=== PATIENT | male | born 1955 | race Caucasian/White ===

== ENCOUNTER 2020-03-30 11:03 | Emergency (ER) | payer BC ==
[2020-03-30] MEDS ORDERED: Sodium Chloride 0.9% 10 ML Syringe FLUSH PRN (11:24)
[2020-03-30] MEDS ORDERED: Aspirin 81 MG Tab.Chew PO ONE (12:18)
[2020-03-30] MEDS ORDERED: Heparin Sodium 5,000 Units/ML Vial IVPUSH ONE (12:19)
[2020-03-30] MEDS ORDERED: Heparin Sodium/D5W 25,000 UNITS/500 ML BAG IV SCH (12:20)
--- NOTE | 2020-03-30 12:28 | EDM.PDOC ---
ED HPI GENERAL MEDICAL PROBLEM - General Chief Complaint: Cardiovascular Problem Stated Complaint: COUGH/CHEST PAIN/CLEARED FROM COVID 2WEEKS AGO Time Seen by Provider: 03/30/20 11:45 Source of Information: Reports: Patient, RN Notes Reviewed History Limitations: Reports: No Limitations - History of Present Illness INITIAL COMMENTS - FREE TEXT/NARRATIVE: Patient is a 64 year old male who presents to the ED for the evaluation of his irregular heartbeats this morning. Patient notes that 15 days ago, he was positive for COVID-19. He is off quarantine, he states he is having a fatigue and a mild cough at this time. But he is not had any fevers, chills, any oxygen irregularities. Patient notes that this morning he went to do his chores, feeding horses and pitching hay when he felt his heart beat a little irregular. This concerned him as he has a normal pretty steady heart rate. He is not having any chest pain or shortness of breath at this time, he further denies any body aches or any other [id number] symptoms. He notes that he takes amlodipine and chlorthalidone for medications, his primary care provider is Oliver Curtis. He states he did take some aspirin this morning as well for initial heart health - Related Data Allergies Allergy/AdvReac Type Severity Reaction Status Date / Time No Known Allergies Allergy Verified 03/30/20 11:18 Home Meds: Home Meds Chlorthalidone 25 mg PO DAILY 03/30/20 [History] amLODIPine [Norvasc] 10 mg PO DAILY 03/30/20 [History] Past Medical History Cardiovascular History: Reports: Hypertension - Infectious Disease History Infectious Disease History: Reports: Chicken Pox, Novel Coronavirus - Past Surgical History HEENT Surgical History: Reports: Tonsillectomy GI Surgical History: Reports: Appendectomy Social & Family History - Family History Family Medical History: No Pertinent Family History - Tobacco Use Tobacco Use Status *Q: Current Some Day Tobacco User Years of Tobacco use: 25 Packs/Tins Daily: 0.2 - Caffeine Use Caffeine Use: Reports: Coffee - Recreational Drug Use Recreational Drug Use: No ED ROS GENERAL - Review of Systems Review Of Systems: Comprehensive ROS is negative, except as noted in HPI. ED EXAM, GENERAL - Physical Exam Exam: See Below Exam Limited By: No Limitations General Appearance: Alert, WD/WN, No Apparent Distress Eye Exam: Bilateral Eye: Normal Inspection Respiratory/Chest: No Respiratory Distress, Lungs Clear, Normal Breath Sounds, No Accessory Muscle Use, Chest Non-Tender Cardiovascular: Normal Peripheral Pulses, Regular Rate, Rhythm, No Murmur Peripheral Pulses: 2+: Radial (L), Radial (R) GI/Abdominal: Normal Bowel Sounds, Soft, Non-Tender, No Distention, No Mass Extremities: Normal Inspection, Normal Capillary Refill Neurological: Alert, Oriented, Normal Cognition, No Motor/Sensory Deficits Psychiatric: Normal Affect, Normal Mood Skin Exam: Warm, Dry, Intact, Normal Color, No Rash #1 Interpretation EKG Date: 03/30/20 Time: 11:31 Rhythm: NSR Rate (Beats/Min): 65 [place]: LAD-Left [place] Deviation (-33 ) P-Wave: Present QRS: Normal ST-T: Normal QT: Normal EKG Interpretation Comments: No obvious ischemia or acute ST changes noted, reviewed by myself and Dr. Berg. There is some T wave inversion in V5 and V6, and possible Q waves in leads III and aVF suggestive of an old inferior wall IN. Course - Vital Signs Last Recorded V/S: Last Vital Signs Temp 97.4 F 03/30/20 11:15 Pulse 73 03/30/20 11:15 Resp 19 03/30/20 11:15 BP 156/92 H 03/30/20 11:15 Pulse Ox 98 03/30/20 11:15 - Orders/Labs/Meds Orders: Active Orders 24 hr Category Date Time Status EKG Documentation Completion [RC] STAT Care 03/30/20 11:24 Active Peripheral IV Care [RC] . DIRECTED Care 03/30/20 11:24 Active CORONAVIRUS COVID-19 DANIEL [MOLEC] Stat Lab 03/30/20 12:16 Ordered Heparin Sodium/D5W [Heparin 25,000 Units in D5W 500 ML] Med 03/30/20 12:20 Ordered 25,000 units in 500 ml IV TITRATE Sodium Chloride 0.9% [Saline Flush] Med 03/30/20 11:24 Active 10 ml FLUSH ASDIRECTED PRN Peripheral IV Insertion Adult [OM.PC] Stat Oth 03/30/20 11:24 Ordered Medication Orders Heparin Sodium/Dextrose (Heparin 25,000 Units In D5w 500 Ml) 25,000 units in 500 mls @ 23.95 mls/hr IV TITRATE DEWAYNE; Protocol Last Admin: 03/30/20 12:33 Dose: 12 units/kg/hr, 23.95 mls/hr Documented by: MCKENNA Cosigned by: RADHA Sodium Chloride (Saline Flush) 10 ml FLUSH ASDIRECTED PRN PRN Reason: Keep Vein Open Last Admin: 03/30/20 11:26 Dose: 10 ml Documented by: MCKENNA Labs: Laboratory Tests 03/30/20 03/30/20 03/30/20 Range/Units 11:15 11:15 11:15 WBC 8.92 (4.23-9.07) K/mm3 RBC 5.13 (4.63-6.08) M/mm3 Hgb 16.1 (13.7-17.5) gm/dl Hct 44.6 (40.1-51.0) % MCV 86.9 (79.0-92.2) fl MCH 31.4 (25.7-32.2) pg MCHC 36.1 H (32.2-35.5) g/dl RDW Std Deviation 38.8 (35.1-43.9) fL Plt Count 244 (163-337) K/mm3 MPV 10.2 (9.4-12.3) fl Neut % (Auto) 70.2 H (34.0-67.9) % Lymph % (Auto) 19.5 L (21.8-53.1) % [place] % (Auto) 9.1 (5.3-12.2) % Eos % (Auto) 1.0 (0.8-7.0) Baso % (Auto) 0.2 (0.1-1.2) % Neut # (Auto) 6.26 H (1.78-5.38) K/mm3 Lymph # (Auto) 1.74 (1.32-3.57) K/mm3 [place] # (Auto) 0.81 (0.30-0.82) K/mm3 Eos # (Auto) 0.09 (0.04-0.54) K/mm3 Baso # (Auto) 0.02 (0.01-0.08) K/mm3 PT 10.0 (9.7-12.0) SECONDS INR 0.93 APTT 23.8 (21.7-31.4) SECONDS Sodium 138 (136-145) mEq/L Potassium 3.2 L (3.5-5.1) mEq/L Chloride 100 (98-107) mEq/L Carbon Dioxide 28 (21-32) mEq/L Anion Gap 13.2 (5-15) BUN 24 H (7-18) mg/dL Creatinine 1.2 (0.7-1.3) mg/dL Est Cr Clr Drug Dosing 68.26 mL/min Estimated GFR (MDRD) > 60 (>60) mL/min BUN/Creatinine Ratio 20.0 H (14-18) Glucose 117 H (80-115) mg/dL Calcium 9.7 (8.5-10.1) mg/dL Magnesium 2.0 (1.8-2.4) mg/dl Total Bilirubin 0.7 (0.2-1.0) mg/dL AST 24 (15-37) U/L ALT 41 (16-63) U/L Alkaline Phosphatase 102 (46-116) U/L Troponin I 2.037 H* (0.00-0.056) ng/mL NT-Pro-B Natriuret Pep (0-125) pg/mL Total Protein 8.0 (6.4-8.2) g/dl Albumin 4.3 (3.4-5.0) g/dl Globulin 3.7 gm/dL Albumin/Globulin Ratio 1.2 (1-2) /25/20 Range/Units 11:15 WBC (4.23-9.07) K/mm3 RBC (4.63-6.08) M/mm3 Hgb (13.7-17.5) gm/dl Hct (40.1-51.0) % MCV (79.0-92.2) fl MCH (25.7-32.2) pg MCHC (32.2-35.5) g/dl RDW Std Deviation (35.1-43.9) fL Plt Count (163-337) K/mm3 MPV (9.4-12.3) fl Neut % (Auto) (34.0-67.9) % Lymph % (Auto) (21.8-53.1) % [place] % (Auto) (5.3-12.2) % Eos % (Auto) (0.8-7.0) Baso % (Auto) (0.1-1.2) % Neut # (Auto) (1.78-5.38) K/mm3 Lymph # (Auto) (1.32-3.57) K/mm3 [place] # (Auto) (0.30-0.82) K/mm3 Eos # (Auto) (0.04-0.54) K/mm3 Baso # (Auto) (0.01-0.08) K/mm3 PT (9.7-12.0) SECONDS INR APTT (21.7-31.4) SECONDS Sodium (136-145) mEq/L Potassium (3.5-5.1) mEq/L Chloride (98-107) mEq/L Carbon Dioxide (21-32) mEq/L Anion Gap (5-15) BUN (7-18) mg/dL Creatinine (0.7-1.3) mg/dL Est Cr Clr Drug Dosing mL/min Estimated GFR (MDRD) (>60) mL/min BUN/Creatinine Ratio (14-18) Glucose (80-115) mg/dL Calcium (8.5-10.1) mg/dL Magnesium (1.8-2.4) mg/dl Total Bilirubin (0.2-1.0) mg/dL AST (15-37) U/L ALT (16-63) U/L Alkaline Phosphatase (46-116) U/L Troponin I (0.00-0.056) ng/mL NT-Pro-B Natriuret Pep 1759 H (0-125) pg/mL Total Protein (6.4-8.2) g/dl Albumin (3.4-5.0) g/dl Globulin gm/dL Albumin/Globulin Ratio (1-2) Meds: Medications Generic Name Dose Route Start Last Admin Trade Name Freq PRN Reason Stop Dose Admin Heparin Sodium/Dextrose 25,000 units in 500 mls @ 23.95 mls/hr 03/30/20 12:20 03/30/20 12:33 Heparin 25,000 Units In D5w 500 Ml IV 12 units/kg/hr TITRATE DEWAYNE 23.95 mls/hr Administration Protocol 12 UNITS/KG/HR Sodium Chloride 10 ml 03/30/20 11:24 03/30/20 11:26 Saline Flush FLUSH 10 ml ASDIRECTED PRN Administration Keep Vein Open Discontinued Medications Generic Name Dose Route Start Last Admin Trade Name Justin PRN Reason Stop Dose Admin Aspirin 324 mg 03/30/20 12:18 03/30/20 12:40 Aspirin PO 03/30/20 12:19 Not Given ONETIME ONE Heparin Sodium (Porcine) 4,000 units 03/30/20 12:19 03/30/20 12:33 Heparin Sodium IVPUSH 03/30/20 12:20 4,000 units .BOLUS ONE Administration - Re-Assessments/Exams Free Text/Narrative Re-Assessment/Exam: 03/30/20 12:39 Patient presents to the ED for evaluation of his irregular heartbeat. He is status post Covid, he did get a cardiac work-up for labs, EKG demonstrated no obvious ST ischemia or abnormalities. This was reviewed by myself and Dr. Berg. His troponin I was markedly elevated at 2.037. At this time we did start heparin drip and bolus. I have been in contact with cardiology at [facility] in [place], and Dr. Daniel does tentatively accept for admission, he states he would need echo and repeat troponins. I also talked with Dr. Montano, and he graciously accepts the patient for transfer for N-STEMI at this time. We will get the patient transferred via ambulance for further evaluation management. Departure - Departure Time of Disposition: 12:46 Disposition: DC/Tfer to Acute Hospital 02 Reason for Transfer *Q: Other (N-stemi) Condition: Fair Clinical Impression: Non-STEMI (non-ST elevated myocardial infarction) Referrals: PCP,None [Primary Care Provider] - Forms: ED Department Discharge Sepsis Event Note (ED) - Evaluation Sepsis Screening Result: No Definite Risk - Focused Exam Vital Signs: Vital Signs Temp Pulse Resp BP Pulse Ox 03/30/20 11:15 97.4 F 73 19 156/92 H 98 - My Orders Last 24 Hours: My Active Orders 03/30/20 11:24 EKG Documentation Completion [RC] STAT Peripheral IV Care [RC] . DIRECTED Sodium Chloride 0.9% [Saline Flush] 10 ml FLUSH ASDIRECTED PRN Peripheral IV Insertion Adult [OM.PC] Stat 03/30/20 12:16 CORONAVIRUS COVID-19 DANIEL [MOLEC] Stat 03/30/20 12:20 Heparin Sodium/D5W [Heparin 25,000 Units in D5W 500 ML] 25,000 units in 500 ml IV TITRATE - Assessment/Plan Last 24 Hours: My Active Orders 03/30/20 11:24 EKG Documentation Completion [RC] STAT Peripheral IV Care [RC] . DIRECTED Sodium Chloride 0.9% [Saline Flush] 10 ml FLUSH ASDIRECTED PRN Peripheral IV Insertion Adult [OM.PC] Stat 03/30/20 12:16 CORONAVIRUS COVID-19 DANIEL [MOLEC] Stat 03/30/20 12:20 Heparin Sodium/D5W [Heparin 25,000 Units in D5W 500 ML] 25,000 units in 500 ml IV TITRATE
--- NOTE | 2020-03-30 12:43 | CR ---
PROCEDURE INFORMATION: Exam: XR Chest, 1 View Exam date and time: 03/30/2020 11:30 AM Age: 64 years old Clinical indication: Patient HX: Palpitations history of covid TECHNIQUE: Imaging protocol: XR of the chest Views: 1 view. COMPARISON: No relevant prior studies available. FINDINGS: Lungs: Unremarkable. No consolidation. Pleural space: Unremarkable. No pleural effusion. No pneumothorax. Heart/Mediastinum: Unremarkable. No cardiomegaly. Bones/joints: Unremarkable. IMPRESSION: Normal chest. Thank you for allowing us to participate in the care of your patient. Dictated and Authenticated by: Uzma Cordova MD 03/30/2020 1:24 PM Central Time ([place] & [place]) ROBBI
== END 2020-03-30 13:38 ==
LOC: JD.ED 11:03
DX: I21.4 Non-ST elevation (NSTEMI) myocardial infarction (principal); U07.1 COVID-19; I10 Essential (primary) hypertension; F17.210 Nicotine dependence, cigarettes, uncomplicated; Z90.49 Acquired absence of other specified parts of digestive tract; Z79.899 Other long term (current) drug therapy
CPT/HCPCS: 36415; 71045; 80053; 83735; 83880; 84484; 85025; 85610; 85730; 87635; 93005; 96365; 99285; J1644; U0002

== ENCOUNTER 2021-04-10 16:21 | Emergency (ER) | payer MEDICARE, BC ==
--- NOTE | 2021-04-10 19:06 | CR ---
Chest: PA and lateral views of the chest were obtained. Comparison: No prior chest imaging is available. Heart size and mediastinum are within normal limits. Lungs are clear with no acute parenchymal change. Slight degenerative change is scattered within the spine. No acute osseous finding is seen. Impression: 1. Nothing acute is seen on 2-view chest x-ray. Diagnostic code #2
--- NOTE | 2021-04-10 19:22 | EDM.PDOC ---
<Aftab Donald - Last Filed: 04/10/21 23:59> ED HPI GENERAL MEDICAL PROBLEM - General Chief Complaint: Cardiovascular Problem Stated Complaint: HIGH BLOOD PRESSURE Time Seen by Provider: 04/10/21 17:48 - Related Data Allergies Allergy/AdvReac Type Severity Reaction Status Date / Time No Known Allergies Allergy Verified 04/10/21 16:50 Home Meds: Home Meds Chlorthalidone 25 mg PO DAILY 03/30/20 [History] amLODIPine [Norvasc] 10 mg PO DAILY 03/30/20 [History] Clopidogrel [Plavix] 75 mg PO DAILY 04/10/21 [History] Losartan Potassium 25 mg PO DAILY 04/10/21 [History] atorvaSTATin [Lipitor] 80 mg PO DAILY 04/10/21 [History] ED ROS GENERAL - Review of Systems Review Of Systems: Comprehensive ROS is negative, except as noted in HPI. ED EXAM, GENERAL - Physical Exam Exam: See Below Free Text/Narrative:: I have reviewed the triage vital signs Const: Well nourished, well developed, appears stated age Eyes: Pupils Equal and reactive to light bilaterally, no conjunctival injection HENT: No signs of trauma or swelling, Neck supple without meningismus CV: Regular Rate Rhythm, Warm, well-perfused extremities RESP: Unlabored respiratory effort MSK: No gross deformities appreciated Skin: Warm, dry. No rashes Neuro: Alert, laborer golf course II-XII grossly intact. Sensation and motor function of extremities grossly intact. Psych: Appropriate mood and affect. Course - Re-Assessments/Exams Free Text/Narrative Re-Assessment/Exam: 04/10/21 23:58 Assumed care of patient at routine shift change. I went through and reevaluated the patient. He is currently asymptomatic. Blood pressure is improved nicely with a systolic in the low 140s. His repeat troponin testing demonstrates no significant changes. Per his senior abap developer recommendations, he can be discharged and I instructed the patient that he should call cardiology in the morning to set up a follow-up appointment. Rapid access follow-up is available. Therefore, I believe it is appropriate for patient to be discharged with appropriate return precautions. Patient is agreement with this plan. All questions were addressed and answered. Patient discharged in stable condition. Departure - Departure Time of Disposition: 23:37 Disposition: Home, Self-Care 01 Clinical Impression: Hypertension, Elevated troponin Instructions: Hypertension, Adult, [id number] Referrals: Saba Kay PA-C [Primary Care Provider] - Forms: ED Department Discharge Additional Instructions: Please follow-up with your senior abap developer in the morning. Should anything change before you are able to see cardiology, please return to the emergency room. <Renetta Shannon - Last Filed: 04/11/21 12:12> ED HPI GENERAL MEDICAL PROBLEM - General Source of Information: Reports: Patient, RN Notes Reviewed History Limitations: Reports: No Limitations - History of Present Illness INITIAL COMMENTS - FREE TEXT/NARRATIVE: Patient is a 65-year-old male presenting to the emergency department for evaluation of elevated blood pressure. He has a history of hypertension was previously prescribed amlodipine and chlorthalidone. He reports that this morning he felt "pulsating sensation "and feels like his pulse skipped. He checked his blood pressure and found it to be 190s/100s. He was seen at the [place] walk-in clinic. They added losartan 25 mg to his medications. He took a dose of this well in the clinic. He was advised that if his blood pressure does not come down, he should present to the ER for evaluation. He denies any chest pain but states that the last time he felt these "skipped "in his heart he was seen in the ER and diagnosed with NM. He was transferred to [place], however they did not do any stenting. At that time, he was also Covid positive. Patient reports that prior to coming to the ER his blood pressure was 180/92. He denies any palpitations or pulsating at this time. Past Medical History Cardiovascular History: Reports: Hypertension Endocrine/Metabolic History: Reports: Obesity/BMI 30+ - Infectious Disease History Infectious Disease History: Reports: Chicken Pox, Novel Coronavirus - Past Surgical History HEENT Surgical History: Reports: Tonsillectomy GI Surgical History: Reports: Appendectomy Social & Family History - Family History Family Medical History: No Pertinent Family History - Tobacco Use Tobacco Use Status *Q: Current Every Day Tobacco User Years of Tobacco use: 40 Packs/Tins Daily: 1 Second Hand Smoke Exposure: No - Caffeine Use Caffeine Use: Reports: Coffee - Recreational Drug Use Recreational Drug Use: No #1 Interpretation EKG Date: 04/10/21 Time: 18:39 Rhythm: NSR Rate (Beats/Min): 52 [place]: LAD-Left [place] Deviation P-Wave: Present QRS: Normal ST-T: Normal QT: Normal EKG Interpretation Comments: Bradycardia. No atrial enlargement. Borderline atrioventricular block. No ischemic changes. Early transition. Positive left axis deviation. Positive left ventricular hypertrophy. No intraventricular conduction delays. QTc within normal limits. EKG interpreted by Dr. Vandana LOYOLA Course - Vital Signs Last Recorded V/S: Last Vital Signs Temp 98 F 04/10/21 23:30 Pulse 49 L 04/10/21 23:30 Resp 20 04/10/21 23:30 BP 144/87 H 04/10/21 23:30 Pulse Ox 94 L 04/10/21 23:30 - Orders/Labs/Meds Labs: Laboratory Tests 04/10/21 04/10/21 04/10/21 Range/Units 19:24 19:24 19:24 WBC 8.19 (4.23-9.07) K/mm3 RBC 4.92 (4.63-6.08) M/mm3 Hgb 15.3 (13.7-17.5) gm/dl Hct 43.1 (40.1-51.0) % MCV 87.6 (79.0-92.2) fl MCH 31.1 (25.7-32.2) pg MCHC 35.5 (32.2-35.5) g/dl RDW Std Deviation 39.4 (35.1-43.9) fL Plt Count 194 (163-337) K/mm3 MPV 9.8 (9.4-12.3) fl Neut % (Auto) 67.0 (34.0-67.9) % Lymph % (Auto) 22.8 (21.8-53.1) % Power % (Auto) 8.4 (5.3-12.2) % Eos % (Auto) 1.6 (0.8-7.0) Baso % (Auto) 0.1 (0.1-1.2) % Neut # (Auto) 5.48 H (1.78-5.38) K/mm3 Lymph # (Auto) 1.87 (1.32-3.57) K/mm3 Power # (Auto) 0.69 (0.30-0.82) K/mm3 Eos # (Auto) 0.13 (0.04-0.54) K/mm3 Baso # (Auto) 0.01 (0.01-0.08) K/mm3 Sodium 140 (136-145) mEq/L Potassium 2.9 L (3.5-5.1) mEq/L Chloride 101 (98-107) mEq/L Carbon Dioxide 28 (21-32) mEq/L Anion Gap 13.9 (5-15) BUN 20 H (7-18) mg/dL Creatinine 1.0 (0.7-1.3) mg/dL Est Cr Clr Drug Dosing 83.23 mL/min Estimated GFR (MDRD) > 60 (>60) mL/min BUN/Creatinine Ratio 20.0 H (14-18) Glucose 115 H (70-99) mg/dL Calcium 9.1 (8.5-10.1) mg/dL Magnesium (1.8-2.4) mg/dL Total Bilirubin 1.3 H (0.2-1.0) mg/dL AST 24 (15-37) U/L ALT 36 (16-63) U/L Alkaline Phosphatase 94 (46-116) U/L Troponin I 0.144 H* (0.00-0.056) ng/mL NT-Pro-B Natriuret Pep 308 H (0-125) pg/mL Total Protein 7.0 (6.4-8.2) g/dl Albumin 4.0 (3.4-5.0) g/dl Globulin 3.0 gm/dL Albumin/Globulin Ratio 1.3 (1-2) 04/10/21 04/10/21 Range/Units 19:24 22:33 WBC (4.23-9.07) K/mm3 RBC (4.63-6.08) M/mm3 Hgb (13.7-17.5) gm/dl Hct (40.1-51.0) % MCV (79.0-92.2) fl MCH (25.7-32.2) pg MCHC (32.2-35.5) g/dl RDW Std Deviation (35.1-43.9) fL Plt Count (163-337) K/mm3 MPV (9.4-12.3) fl Neut % (Auto) (34.0-67.9) % Lymph % (Auto) (21.8-53.1) % Power % (Auto) (5.3-12.2) % Eos % (Auto) (0.8-7.0) Baso % (Auto) (0.1-1.2) % Neut # (Auto) (1.78-5.38) K/mm3 Lymph # (Auto) (1.32-3.57) K/mm3 Power # (Auto) (0.30-0.82) K/mm3 Eos # (Auto) (0.04-0.54) K/mm3 Baso # (Auto) (0.01-0.08) K/mm3 Sodium (136-145) mEq/L Potassium (3.5-5.1) mEq/L Chloride (98-107) mEq/L Carbon Dioxide (21-32) mEq/L Anion Gap (5-15) BUN (7-18) mg/dL Creatinine (0.7-1.3) mg/dL Est Cr Clr Drug Dosing mL/min Estimated GFR (MDRD) (>60) mL/min BUN/Creatinine Ratio (14-18) Glucose (70-99) mg/dL Calcium (8.5-10.1) mg/dL Magnesium 2.0 (1.8-2.4) mg/dL Total Bilirubin (0.2-1.0) mg/dL AST (15-37) U/L ALT (16-63) U/L Alkaline Phosphatase (46-116) U/L Troponin I 0.145 H* (0.00-0.056) ng/mL NT-Pro-B Natriuret Pep (0-125) pg/mL Total Protein (6.4-8.2) g/dl Albumin (3.4-5.0) g/dl Globulin gm/dL Albumin/Globulin Ratio (1-2) Meds: Medications Discontinued Medications Generic Name Dose Route Start Last Admin Trade Name Freq PRN Reason Stop Dose Admin Potassium Chloride 40 meq 04/10/21 20:57 04/10/21 21:08 Potassium Chloride 20 Meq Tab.Er PO 04/10/21 20:58 40 meq ONETIME ONE Administration Potassium Chloride 40 meq 04/10/21 23:00 04/10/21 23:06 Potassium Chloride 20 Meq Tab.Er PO 04/10/21 23:01 40 meq ONETIME ONE Administration - Re-Assessments/Exams Free Text/Narrative Re-Assessment/Exam: Patient is a 65-year-old male presenting to the emergency department for evaluation of high blood pressure. He noticed the elevation this morning after he "did not feel". Started on losartan in addition to amlodipine and chlorthalidone which she was previously prescribed. On arrival to ER, blood pressure was minimally elevated 157/90 with a pulse of 57. Patient has had no chest pain at any point throughout the day. Given his history, will complete cardiac work-up including CBC, CMP, troponin, proBNP. 04/10/212044 Hematology significant for potassium low 2.9, total bili 1.3, troponin 0 0.144, proBNP 308. EKG shows sinus bradycardia at 52 with no evidence of acute ischemia. Chest x-ray shows no acute abnormalities. Patient continues to deny any chest pain at any point. Consulted with the senior abap developer on-call at [facility], Dr. White. He recommended that we supplement potassium with a total of 80 mEq. Recommends repeat troponin approximate 3 hours after the original draw. If troponin stays in the same range, patient may be discharged home with recommendation to follow-up with his senior abap developer, Dr. Daniel. If there is a significant increase, he recommends initiating heparin drip and arranging for transfer to cardiology services. I have ordered repeat troponin at 2230. We will give 40 mEq of oral potassium at this time and then plan to give another 40 mEq a couple hours later. Plan discussed with patient and his and they are in agreement. 04/10/21 2300 case was discussed with ER physician, Dr. Donald at end of shift. He will assume care and disposition of patient pending repeat troponin results. Sepsis Event Note (ED) - Evaluation Sepsis Screening Result: No Definite Risk
[2021-04-10] MEDS ORDERED: Potassium Chloride 20 MEQ Tab.ER PO ONE ×2 (20:57→23:00)
== END 2021-04-10 23:45 | disposition home or self-care (01) ==
LOC: JD.ED 16:21
DX: I10 Essential (primary) hypertension (principal); R79.89 Other specified abnormal findings of blood chemistry; E66.9 Obesity, unspecified; Z68.33 Body mass index [BMI] 33.0-33.9, adult; Z72.0 Tobacco use
CPT/HCPCS: 36415; 71046; 80053; 83735; 83880; 84484; 85025; 93005; 99284; A9270

== ENCOUNTER 2021-04-30 10:08 | Emergency (ER) | payer MEDICARE, BC ==
--- NOTE | 2021-04-30 11:28 | EDM.PDOC ---
ED HPI GENERAL MEDICAL PROBLEM - General Chief Complaint: ENT Problem Stated Complaint: SINUSES Time Seen by Provider: 04/30/21 10:42 Source of Information: Reports: Patient History Limitations: Reports: No Limitations - History of Present Illness INITIAL COMMENTS - FREE TEXT/NARRATIVE: The patient presents with right ear pain, congestion, runny nose, sinus pressure and cough. This has been going on for over a week. His granddaughter has a similar problem and was sent to [facility] for admission last night. He had COVID over a year ago and had some heart troubles after. He has no chest pain, shortness of breath, abdominal pain, nausea or vomiting. Onset: Gradual Duration: Week(s): Location: Reports: Face Quality: Reports: Pressure Severity: Mild Improves with: Reports: None Worsens with: Reports: None Associated Symptoms: Reports: Cough. Denies: Chest Pain, Fever/Chills, Headaches, Nausea/Vomiting, Shortness of Breath - Related Data Allergies Allergy/AdvReac Type Severity Reaction Status Date / Time No Known Allergies Allergy Verified 04/30/21 10:58 Home Meds: Home Meds Chlorthalidone 25 mg PO DAILY 03/30/20 [History] amLODIPine [Norvasc] 10 mg PO DAILY 03/30/20 [History] Clopidogrel [Plavix] 75 mg PO DAILY 04/10/21 [History] Losartan Potassium 25 mg PO DAILY 04/10/21 [History] atorvaSTATin [Lipitor] 80 mg PO DAILY 04/10/21 [History] Amoxicillin 875 mg PO BID #20 tab 04/30/21 [Rx] Past Medical History Cardiovascular History: Reports: Hypertension Endocrine/Metabolic History: Reports: Obesity/BMI 30+ - Infectious Disease History Infectious Disease History: Reports: Chicken Pox, Novel Coronavirus - Past Surgical History HEENT Surgical History: Reports: Tonsillectomy GI Surgical History: Reports: Appendectomy Social & Family History - Family History Family Medical History: No Pertinent Family History - Tobacco Use Tobacco Use Status *Q: Former Tobacco User Used Tobacco, but Quit: Yes Month/Year Tobacco Last Used: 03/2020 - Caffeine Use Caffeine Use: Reports: None - Recreational Drug Use Recreational Drug Use: No ED ROS ENT - Review of Systems Review Of Systems: See Below Constitutional: Reports: No Symptoms HEENT: Reports: Other (sinus pressure) Respiratory: Reports: Cough Cardiovascular: Reports: No Symptoms Endocrine: Reports: No Symptoms GI/Abdominal: Reports: No Symptoms : Reports: No Symptoms Musculoskeletal: Reports: No Symptoms Skin: Reports: No Symptoms ED EXAM, ENT - Physical Exam Exam: See Below Exam Limited By: No Limitations General Appearance: Alert, No Apparent Distress Ears: Normal External Exam, Normal Canal, TM Erythema (right), TM Fluid (right) Nose: Normal Inspection Mouth/Throat: Normal Inspection Head: Atraumatic, Normocephalic Neck: Normal Inspection Respiratory/Chest: No Respiratory Distress, Lungs Clear, Normal Breath Sounds Cardiovascular: Regular Rate, Rhythm, No Edema, No Murmur GI/Abdominal: Soft, Non-Tender, No Organomegaly, No Mass Back: Normal Inspection Course - Vital Signs Last Recorded V/S: Last Vital Signs Temp 97.7 F 04/30/21 10:37 Pulse 60 04/30/21 10:37 Resp 18 04/30/21 10:37 BP 139/89 04/30/21 10:37 Pulse Ox 96 04/30/21 10:37 - Orders/Labs/Meds Orders: Active Orders 24 hr Category Date Time Status Norepinephrine [Levophed] 4 mg Med 04/30/21 11:30 Active Dextrose 5% in Water 246 ml IV TITRATE Medication Orders Norepinephrine Bitartrate 4 mg (/ Dextrose/Water) 250 mls @ 7.5 mls/hr IV TITRATE DEWAYNE; Protocol Meds: Medications Generic Name Dose Route Start Last Admin Trade Name Freq PRN Reason Stop Dose Admin Norepinephrine Bitartrate 4 mg 250 mls @ 7.5 mls/hr 04/30/21 11:30 / Dextrose/Water IV TITRATE DEWAYNE Protocol 2 MCG/MIN - Re-Assessments/Exams Free Text/Narrative Re-Assessment/Exam: 04/30/21 11:25 He has an ear infection ans sinusitis. I will get him on some amoxicillin. Departure - Departure Time of Disposition: 11:30 Disposition: Home, Self-Care 01 Condition: Good Clinical Impression: Otitis media Qualifiers: Otitis media type: serous Chronicity: acute Laterality: right Recurrence: non- recurrent Qualified Code(s): H65.01 - Acute serous otitis media, right ear - Discharge Information *PRESCRIPTION DRUG MONITORING PROGRAM REVIEWED*: Not Applicable *COPY OF PRESCRIPTION DRUG MONITORING REPORT IN PATIENT ALLAN: Not Applicable Prescriptions: Amoxicillin 875 mg PO BID #20 tab Additional Instructions: Take the amoxicillin 2 times per day for 10 days. Drink plenty of fluids. Take tylenol or motrin for pain. You could try some over the counter medications for congestion that may help. Please return if you are worse. Sepsis Event Note (ED) - Evaluation Sepsis Screening Result: No Definite Risk - Focused Exam Vital Signs: Vital Signs Temp Pulse Resp BP Pulse Ox 04/30/21 10:37 97.7 F 60 18 139/89 96 - My Orders Last 24 Hours: My Active Orders 04/30/21 11:30 Norepinephrine [Levophed] 4 mg Dextrose 5% in Water 246 ml IV TITRATE - Assessment/Plan Last 24 Hours: My Active Orders 04/30/21 11:30 Norepinephrine [Levophed] 4 mg Dextrose 5% in Water 246 ml IV TITRATE
[2021-04-30] MEDS ORDERED: Norepinephrine 4 MG in Dextrose 5% in Water 246 ML IV SCH ×2 (11:30)
== END 2021-04-30 11:40 | disposition home or self-care (01) ==
LOC: JD.ED 10:08
DX: H65.01 Acute serous otitis media, right ear (principal); I10 Essential (primary) hypertension; E66.9 Obesity, unspecified; Z68.32 Body mass index [BMI] 32.0-32.9, adult; Z86.16 Personal history of COVID-19; Z87.891 Personal history of nicotine dependence; Z79.02 Long term (current) use of antithrombotics/antiplatelets; Z79.899 Other long term (current) drug therapy
CPT/HCPCS: 99283

== ENCOUNTER 2023-05-13 16:00 | Emergency (ER) | payer MEDICARE, BC ==
[2023-05-13] MEDS ORDERED: Diclofenac Sodium 1% Gel 100 GM Tube TOP ONE (16:51)
[2023-05-13] MEDS ORDERED: Sodium Chloride 0.9% 10 ML Syringe FLUSH PRN (16:51)
[2023-05-13 17:25] LABS: BASOPHILS PERCENT AUTO 0.4 % (0.0-1.0); EOSINOPHILS ABSOLUTE AUTO 0.1 K/mm3 (0.0-0.4); EOSINOPHILS PERCENT AUTO 1.6 % (0.0-6.0); HEMATOCRIT 42.9 % (42.0-52.0); HEMOGLOBIN 15.4 gm/dl (14.0-18.0); IMMATURE GRAN ABSOLUTE AUTO 0.03 K/mm3 (0.00-0.05); IMMATURE GRAN PERCENT AUTO 0.4 % (0.0-0.4); LYMPHOCYTES ABSOLUTE AUTO 1.3 K/mm3 (1.0-4.8); LYMPHOCYTES PERCENT AUTO 16.3 % (24.0-44.0); MEAN CORPUSCULAR HEMOGLOBIN 31.8 pg (28.0-32.0); MEAN CORPUSCULAR HGB CONC 35.9 g/dl (32.0-36.0); MEAN CORPUSCULAR VOLUME 88.5 fl (83.0-99.0); MEAN PLATELET VOLUME 9.2 fl (9.4-12.4); MONOCYTES ABSOLUTE AUTO 0.5 K/mm3 (0.0-0.8); MONOCYTES PERCENT AUTO 6.4 % (0.0-8.0); NEUTROPHILS ABSOLUTE AUTO 6.1 K/mm3 (1.8-7.7); NEUTROPHILS PERCENT AUTO 74.9 % (41.0-71.0); PLATELET COUNT,PLT 186 K/mm3 (150-400); RED BLOOD CELL COUNT 4.85 M/mm3 (4.52-5.90); WHITE BLOOD CELL COUNT,WBC 8.12 K/mm3 (3.9-11.3)
[2023-05-13 18:05] LABS: A/G RATIO 1.2 (1-2); ALBUMIN 3.8 g/dl (3.4-5.0); ANION GAP 13.1 (5-15); BILIRUBIN TOTAL 1.2 mg/dL (0.2-1.0); BUN/CREATININE RATIO 17.5 (14-18); CALCIUM 8.8 mg/dL (8.5-10.1); CREATININE 1.2 mg/dL (0.7-1.3); EST CRCL DRUG DOSING (CG) 65.56 mL/min; POTASSIUM,K 3.1 mEq/L (3.5-5.1); PROTEIN TOTAL,TP 7.1 g/dl (6.4-8.2)
[2023-05-13 19:45] LABS: CORONAVIRUS COVID-19 NAA NEGATIVE (NEGATIVE); INFLUENZA A NAA NEGATIVE (NEGATIVE)
[2023-05-13] MEDS ORDERED: Potassium Chloride 20 MEQ Tab.ER PO ONE (19:52)
== END 2023-05-13 21:54 | disposition home or self-care (01) ==
LOC: JD.ED 16:00
DX: I10 Essential (primary) hypertension (principal); R77.8 Other specified abnormalities of plasma proteins; G89.29 Other chronic pain; M25.561 Pain in right knee; E87.6 Hypokalemia; E66.9 Obesity, unspecified; Z90.49 Acquired absence of other specified parts of digestive tract; Z86.16 Personal history of COVID-19; Z20.822 Contact with and (suspected) exposure to COVID-19; Z68.33 Body mass index [BMI] 33.0-33.9, adult; Z79.899 Other long term (current) drug therapy
CPT/HCPCS: 0240U; 36415; 71046; 80053; 83880; 84484; 85025; 93005; 99284; A9270; 93010